=== PATIENT | female | born 1990 | race Caucasian/White ===

== ENCOUNTER 2022-07-10 08:30 | Outpatient (CLI) | payer BC, SELFPAY ==
[2022-07-10 13:14] LABS: Glucose* 94 mg/dL (60-115)
[2022-07-11 11:54] LABS: Estradiol Premenol Female 92 pg/mL
[2022-07-11 14:40] LABS: Prolactin 3.8 ng/mL (2.8-29.2)
[2022-07-11 16:12] LABS: Follicle Stimulating Hormone 5.1 IU/L; Luteinizing Hormone, Serum 8.3 IU/L
== END 2022-07-10 08:31 | disposition home or self-care (01) ==
PROVIDERS: Visit Provider Obstetrics & Gynecology
DX: N92.6 Irregular menstruation, unspecified (principal)
CPT/HCPCS: 82670; 82947; 83001; 83002; 84144; 84146; 84443

== ENCOUNTER 2022-11-13 10:59 | Outpatient (CLI) | payer SELFPAY ==
[2022-11-16 08:40] LABS: Progesterone, HPLC-MS/MS 0.12 ng/mL
== END 2022-11-13 11:00 | disposition home or self-care (01) ==
LOC: LONREF 11:00
PROVIDERS: PCP Obstetrics & Gynecology; Visit Provider Obstetrics & Gynecology
DX: N97.9 Female infertility, unspecified (principal)
CPT/HCPCS: 84144

== ENCOUNTER 2022-11-17 07:59 | Outpatient (CLI) | payer BC, SELFPAY ==
--- NOTE | 2022-11-17 08:15 | CRLHL7_ITS ---
For Patients: As a result of the Cures Act, medical imaging exams and procedure reports are released immediately into your electronic medical record. You may view this report before your referring provider. If you have questions, please contact your health care provider. INDICATION: Infertility workup. Prior section December 12, 2020. Prior appendectomy. TECHNIQUE: Fluoroscopically guided hysterosalpingogram performed in conjunction with Dr. Rowan. FINDINGS: 20 cc nonionic Omnipaque [address] Rowan. Normal-appearing uterus. Free spill of contrast from the fallopian tubes left initially more so than right. Please see detailed notes from Dr. Rowan. 42 seconds fluoroscopy time utilized. IMPRESSION: Normal hysterosalpingogram. Dictated by Lauri Martinez MD @ 11/17/2022 9:53:04 AM (Electronically Signed)
--- NOTE | 2022-11-17 09:53 | W.PM.GYNPROC ---
Procedure Note Date Seen: 11/17/22 Procedure Details: PREPROCEDURE DIAGNOSIS: Secondary infertility. POSTPROCEDURE DIAGNOSIS: 1. Secondary infertility. 2. Patent fallopian tubes bilaterally. NAME OF PROCEDURE: Hysterosalpingogram. SURGEON: Anum. ANESTHESIA: None. COMPLICATIONS: None. PROCEDURE: After obtaining verbal consent, the patient was placed in the dorsal lithotomy position on the x-ray table. An open-sided bivalve speculum was introduced into the vagina and the cervix easily visualized. The cervix and vagina were then prepped with Betadine. A balloon tippeddouble-lumen catheter was then gently inserted through the cervical openinginto the uterine cavity to the level of the fundus. The balloon wasinsufflated with 3 mL of air. The speculum was removed. The patient was repositioned in the supine position, covered, and the radiologist was called to the room. A hysterosalpingogram was then performed. A total of 7 cc of Optipaque water soluble contrast dye was injected through the double-lumen catheter under moderate pressure. There was immediate fill of the uterine cavity to the cornua immediate fill of the left fallopian tube with spillage into the left pelvis. There was immediate fill of the right fallopian tube which initially seemed to pool in the fimbrial end of the tube, and then with repositioning of the patient slightly tilted to her left, spillage was observed on the right as well. The balloon was deflated. The catheter was removed. The patient tolerated the procedure well, though she did have moderate cramping discomfort during and just after the procedure. She was discharged to home in stable condition and to [facility].
== END 2022-11-17 08:00 | disposition home or self-care (01) ==
LOC: RAD 08:00
PROVIDERS: PCP Obstetrics & Gynecology; Visit Provider Obstetrics & Gynecology
DX: N97.9 Female infertility, unspecified (principal)
CPT/HCPCS: 58340; 74740; A4649; Q9966; Q9967

== ENCOUNTER 2023-03-08 07:10 | Outpatient (CLI) | payer BC, SELFPAY ==
--- NOTE | 2023-03-08 07:15 | CRLHL7_ITS ---
For Patients: As a result of the Cures Act, medical imaging exams and procedure reports are released immediately into your electronic medical record. You may view this report before your referring provider. If you have questions, please contact your health care provider. INDICATION: First trimester scan, establish dates. COMPARISON: None. TECHNIQUE: Real-time early-scale imaging of the pelvis was performed. FINDINGS: Sonographic imaging demonstrates a single living intrauterine gestation. The embryo demonstrates a regular cardiac rate measuring 171 beats per minute. The embryo`s crown-rump length measurement of 1.9 cm corresponds to a gestational age of 8 weeks 3 days with a sonographic due date of October 15, 2023. There is a normal-appearing yolk sac measuring 3.4 mm. There are no gross abnormalities noted within the embryo at this early state of development. The placenta has not yet developed. The gestational sac has a normal appearance and there is no evidence of a perigestational hemorrhage. The amount of fluid within the sac appears appropriate for gestational age. The cervix is closed. The myometrium appears normal. The ovaries are of normal size. The right ovary measures 2.8 x 1.7 x 1.5 cm. The left ovary measures 3.1 x 2.0 x 1.9 cm. Corpus luteum cyst of on the left. There are no suspicious fluid collections noted in the cul-de-sac. IMPRESSION: Normal first trimester OB ultrasound exam. Gestational age calculated at 8 weeks 3 days with a sonographic due date of October 15, 2023. Dictated by Lauri Martinez MD @ 03/08/2023 8:39:27 AM (Electronically Signed)
== END 2023-03-08 07:11 | disposition home or self-care (01) ==
LOC: US 07:11
PROVIDERS: Visit Provider Physician Assistant
DX: Z34.91 Encounter for supervision of normal pregnancy, unspecified, first trimester (principal); Z3A.08 8 weeks gestation of pregnancy
CPT/HCPCS: 76817; 86592; 86703; 86762; 86787; 86803; 86850; 86900; 86901; 87086; 87340; 87491; 87591

== ENCOUNTER 2023-03-08 08:36 | Outpatient (CLI) | payer BC, SELFPAY ==
[2023-03-08 12:44] LABS: Chlamydia DNA Amplified* NOT DETECTED (No Detected); GC DNA Amplified* NOT DETECTED (No Detected)
== END 2023-03-08 08:37 | disposition home or self-care (01) ==
PROVIDERS: Visit Provider Physician Assistant
DX: Z34.91 Encounter for supervision of normal pregnancy, unspecified, first trimester (principal); Z3A.08 8 weeks gestation of pregnancy
CPT/HCPCS: 86592; 86703; 86762; 86787; 86803; 86850; 86900; 86901; 87086; 87340; 87491; 87591

== ENCOUNTER 2023-07-26 08:54 | Outpatient (CLI) | payer BC, SELFPAY | END 2023-07-26 08:55 | disposition home or self-care (01) | LOC: NFLDREF 07-28 10:59 | PROVIDERS: Visit Provider Obstetrics & Gynecology | DX: Z34.93 Encounter for supervision of normal pregnancy, unspecified, third trimester (principal); Z3A.28 28 weeks gestation of pregnancy | CPT/HCPCS: 86592 ==

== ENCOUNTER 2023-08-23 08:32 | Outpatient (CLI) | payer BC, SELFPAY ==
--- NOTE | 2023-08-23 08:45 | CRLHL7_ITS ---
For Patients: As a result of the Century Cures Act, medical imaging exams and procedure reports are released immediately into your electronic medical record. You may view this report before your referring provider. If you have questions, please contact your health care provider. INDICATION: recheck low-lying placenta COMPARISON: 03/08/2023 TECHNIQUE: Real-time early-scale imaging of the pelvis was performed. FINDINGS: Transvaginal measurement of the cervix is 5.6 cm. No funneling. Posterior placental edge is located 3.8 cm from the internal cervical os. Normal amniotic fluid with single deepest pocket 4.6 cm. heart rate 126 beats per minute. Vertex position. IMPRESSION: Closed cervix measuring 5.6 cm. Posterior placental edge located 3.8 cm from the internal cervical os. Dictated by Joseph Block MD @ 08/23/2023 10:11:25 AM (Electronically Signed)
== END 2023-08-23 08:33 | disposition home or self-care (01) ==
LOC: US 08:33
PROVIDERS: Visit Provider Obstetrics & Gynecology
DX: O44.40 Low lying placenta NOS or without hemorrhage, unspecified trimester (principal)
CPT/HCPCS: 76816; 76817

== ENCOUNTER 2023-09-21 15:30 | Outpatient (CLI) | payer OTHER, SELFPAY ==
[2023-09-22 17:35] LABS: Strep B DNA Probe Negative (Negative); Strep B Susceptibility Needed? No
== END 2023-09-21 15:31 | disposition home or self-care (01) ==
LOC: NFLDREF 15:41
PROVIDERS: Visit Provider Obstetrics & Gynecology
DX: Z34.93 Encounter for supervision of normal pregnancy, unspecified, third trimester (principal); Z3A.36 36 weeks gestation of pregnancy
CPT/HCPCS: 87081; 87653

== ENCOUNTER 2023-10-08 05:19 | Inpatient (IN) | payer OTHER, SELFPAY ==
[2023-10-08] VITALS (32 sets, daily range): BP systolic 93–139; BP diastolic 54–70; PULSE 54–84; RESP 15–17; TEMP 36.3–36.6; O2SAT 95–100; BMI 37.4
--- OUTSIDE RECORDS SUMMARY | 2023-10-08 05:22 | XMS_ITS | Clinical Summary ---
Author Name Unknown Organization [facility] Address [address] [place] [address] Care Team Providers Care Online Merchant Name Role Phone No Primary/Referring, Phy Primary Care Provider Unavailable Source Comments You are receiving this document as you are listed as the primary care provider,follow-up provider, or the patient has been referred to you for consultation.This is in compliance with the Medicare and[facility] EHR Incentive Program,which states Providers who transition their patient to another setting of careor provider of care or refers their patient to another provider of care shouldprovide summary care record for each transition of care or referral. [facility] Allergies Active Allergy Reactions Criticality Noted Date Comments Sulfa Antibiotics Hives High 06/29/2013 Sulfacetamide 01/21/2016 Medications Medication Sig Dispensed Refills Start Date End Date Status Vit-DSS-Fe Cbn-FA ( AD OR)Indications:Encou nter for preconception consultation 0 Active ibuprofen (MOTRIN) 800 MG tablet Take 1 Tablet by mouth three times a day. 15 Tablet 0 08/29/2019 Active Additional Information Patient not taking.Reported on 09/07/2019 ondansetron (ZOFRAN) 4 MG tablet Take 1 Tablet by mouth every 8 hours as needed for Nausea. 15 Tablet 0 08/29/2019 Active Additional Information Patient not taking.Reported on 09/07/2019 Active Problems Problem Noted Date Diagnosed Date Need for hepatitis B vaccination 08/02/2019 Resolved Problems Problem Noted Date Diagnosed Date Resolved Date Supervision of normal first 08/01/2019 09/07/2019 Encounter for removal of int rauterine contraceptive device 06/02/2017 12/09/2018 Immunizations Name Administration Dates Next Due DTP 03/16/1990 Hib (ActHIB) 03/16/1990 Influenza IIV4 (Quadrivalent) 0.5mL (27453) 07/21 MCV4 (Menactra) 10/08/2008 OPV, Trivalent (Orimune or tOPV) 03/16/1990 Positive Rubella Titer 08/01/2019 Tdap 05/01/2011 Family History Medical History Relation Name Comments Hypertension Maternal Grandfather Cancer Maternal Grandmother Hypertension Paternal Grandfather Stroke Paternal Grandfather Osteoporosis Paternal Grandmother Relation Name Status Comments Father Alive Mother Alive Brother Alive Maternal Grandfather Alive Maternal Grandmother Paternal Grandfather Alive Paternal Grandmother Alive Sister Alive Social History Tobacco Use Types Packs/Day Years Used Date Smoking Tobacco: Never Smokeless Tobacco: Never Alcohol Use Standard Drinks/Week Comments Not Currently 0 (1 standard drink = 0.6 oz pur e alcohol) PHQ-2 Answer Date Recorded PHQ-2 Score 0 03/28/2019 Sex and Gender Information Value Date Recorded Sex Assigned at Not on file Gender Identity Not on file Sexual Orientation Not on file Last Filed Vital Signs Vital Sign Reading Time Taken Comments Blood Pressure 102/65 09/07/2019 11:16 AM FIELD HANDYMAN Pulse 56 09/07/2019 11:16 AM FIELD HANDYMAN Temperature 37.3 ??C (99.2 ??F) 04/18/2018 11:06 AM C DT Respiratory Rate 16 12/09/2018 8:14 AM CDT Oxygen Saturation - - Inhaled Oxygen Concentration - - Weight 65.1 kg (143 lb 9.6 oz) 09/07/2019 11:16 AM FIELD HANDYMAN Height 157.5 cm (5' 2) 08/01/2019 1:54 PM FIELD HANDYMAN Body Mass Index 26.26 08/01/2019 1:54 PM FIELD HANDYMAN Plan of Treatment Health Maintenance Due Date Last Done Comments HepB (1) 1988 COVID-19 Vaccine (#1) 01/28/1989 IPV (Polio) (2 of 3 - 4-dose series) 04/13/1990 03/16/1990 Adult Preventive Visit 03/28/2021 9, 03/25/2018, 01/28/2017 DTaP/Tdap/Td (3 - Tdap) 05/01/2021 05/01/20, 03/16/1990 Influenza (#1) 2023 08/01/2019 Cervical Cancer Screening 03/28/20242018, 01/15/2016 Zoster/Shingles (1 of 2) 2038 Hib Completed 03/16/1990 MCV4 Aged Out 10/08/2008 No longer eligi ble based on patient's age to complete this topic HIV Screening (Preventive Services) Completed 03/28/2019 Hep C Screening (Preventive Services) Completed 03/28/2019 HPV Vaccine Aged Out No longer eligi ble based on patient's age to complete this topic HepA Aged Out No longer eligi ble based on patient's age to complete this topic Pneumococcal Aged Out No longer eligi ble based on patient's age to complete this topic Care Teams Online Merchant Relationship Specialty Start Date End Date No Primary/Referring, Eduar PCP - General 04/18/18
--- OUTSIDE RECORDS SUMMARY | 2023-10-08 05:22 | XMS_ITS | Encounter Summary ---
Author Name Unknown Organization [facility] Address [address] [place] [address] Care Team Providers Care Elevator Repairer Helper Name Role Phone Nia Toney APRN, CNP Primary Care Pro vider Reason for Referral * Diagnostic Imaging Ultrasound (Routine) - Pending Review Specialty Diagnoses / Procedures Referred By Contac t Referred To Contact Radiology. Diagnoses related condition, antepartum Procedures [address] [place] [address] Referral ID Status Reason Start Date Expiration Date V isits Requested Visits Authorized Pending Review 04/06/2023 04/05/2024 1 1 Reason for Visit * Diagnostic Imaging Ultrasound (Routine) - Pending Review Specialty Diagnoses / Procedures [facility] To [facility]. Diagnoses related condition, antepartum Procedures [place] [address] [place] [address] Referral ID Status Reason Start Date Expiration Date V isits Requested Visits Authorized Pending Review 04/06/2023 04/05/2024 1 1 Encounter Details Date Type Department Care Team (Latest Contact Info) Description 05/25/2023 7:58 AM CDT - 05/25/2023 11:59 PM CDT Hospital Encounter [facility] [place] [address] [facility] [address] [place] [address] [place], [address] [place] [address] Matthew Ghosh MD [address] [place], [place] [id number] [facility] [address] [place], [place] [id number] related condition, antepartum Discharge Disposition: Home or Self Care Social History Tobacco Use Types Packs/Day Years Used Date Smoking Tobacco: Never Smokeless Tobacco: Never Alcohol Use Standard Drinks/Week Comments No 0 (1 standard drink = 0.6 oz pur e alcohol) Estimated Date of Delivery Comme nts Yes 10/13/2023 Based on last me nstrual period of 01/06/2023 Sex and Gender Information Value Date Recorded Sex Assigned at Not on file Gender Identity Not on file Sexual Orientation Not on file COVID-19 Exposure Response Date Recorded In the last 10 days, have yo u been in contact with someone who was confirmed or suspected to have Coronavirus/COVID-19? No / Unsure 05/25/2023 7:58 AM CDT documented as of this encounter Medications at Time of Discharge Medication Sig Dispensed Refills Start Date End Date levonorgestrel (MIRENA) 20 MCG/24HR IUD 1 each by Intrauterine route once 0 documented as of this encounter Plan of Treatment Not on file documented as of this encounter Procedures Procedure Name Priority Date/Time Associated Diagnosis Comments [facility] S[facility] Routine 05/25/2023 8:48 AM CDT related condition, antepartum documented in this encounter Results * [facility] Single (05/25/2023 8:48 AM CDT) Anatomical Region Laterality Modality Ultrasound 05/25/2023 7:57 AM CDT Impressions 05/25/2023 8:52 AM CDT IMPRESSION ----- 1) Sonographic biometry agrees with gestational age predicted by LMP. 2) The anatomy was adequately visualized and appeared normal. 3) None of the anomalies commonly detected by ultrasound were evident. 4) No markers for aneuploidy seen. 5) Low-lying placenta. Narrative 05/25/2023 8:52 AM CDT Comprehensive ----- Pat. Name: RORO AGOSTO Study Date: 05/25/2023 7:57am Pat. NO: [id number] Referring ??MD: KIYA JUAREZ Site: [facility] Machine Operator: Silvia Hudson RDMS : 1990 Age: 32 ----- INDICATION ----- Advanced Maternal Age--Multigravida, low risk NIPT. METHOD ----- Transabdominal ultrasound examination. View: Sufficient ----- Wang . Number of fetuses: 1 DATING ----- ? Date ?Details ?Gest. age ?REMIGIO LMP ?01/06/2023 ? 19 w + 6 d ? 10/13/2023 Prior assessment ? 03/08/2023 ? GA: 8 w + 3 d ?19 w + 4 d ? 10/15/2023 U/S ? 05/25/2023 ?based upon AC, BPD, Femur, HC ? 19 w + 3 d ? 10/16/2023 Assigned dating ?Dating performed on 05/25/2023, based on the LMP ?19 w + 6 d ? 10/13/2023 GENERAL EVALUATION ----- Cardiac activity present. FHR 144 bpm. movements present. Presentation breech. Placenta Posterior, low lying. Leading edge of placenta is 1.3cm from internal os. Umbilical cord 3 vessel cord. Amniotic fluid Amount of AF: normal. MVP 5.0 cm. BIOMETRY ----- Main Biometry: BPD ?43.5 ?mm ? 19w 1d ?Hadlock OFD ?61.7 ?mm ? 19w 6d ?Nicolaides HC ?169.7 ?mm ?19w 4d ?Hadlock Cerebellum tr ?20.1 ? mm ?19w 1d ?Nicolaides AC ?138.6 ?mm ?19w 2d ?26% ?Hadlock Femur ?31.8 ? mm ?19w 6d ?Hadlock Humerus ?30.5 ?mm ? 20w 0d ?Kei Weight Calculation: EFW ? 299 ? g ? 29% ?Hadlock EFW (lb,oz) ? 0 lb 11 ? oz EFW by ?Hadlock ([id number]) Head / Face / Neck Biometry: Shoe Stainer ? 6.2 ? mm CM ?4.3 ? mm Nasal bone ? 5.6 ? mm Nuchal fold ? 3.5 ? mm ANATOMY ----- The following structures appear normal: Head / Neck ? Cranium. Head size. Head shape. Lateral ventricles. Choroid plexus. Midline falx. Cavum septi pellucidi. Cerebellum. Cisterna magna. ? Parenchyma. Thalami. Vermis. ? Neck. Nuchal fold. Face ? Lips. Profile. Nose. Maxilla. Mandible. Orbits. Lens. Heart / Thorax ?4-chamber view. RVOT view. LVOT view. Situs. Aortic arch view. Bicaval view. Ductal arch view. Superior vena cava. Inferior vena cava. 3-vessel ? view. 5-pdsjsb-femlvkk view. Cardiac position. Cardiac size. Cardiac rhythm. ? Right lung. Left lung. Diaphragm. Abdomen ? Abdominal wall. Cord insertion. Stomach. Kidneys. Bladder. Liver. Bowel. Genitals. Spine ?Cervical spine. Thoracic spine. Lumbar spine. Sacral spine. Extremities / Skeleton ?Right arm. Right hand. Left arm. Left hand. Right leg. Right foot. Left leg. Left foot. Gender: male. MATERNAL STRUCTURES ----- Cervix ?Visualized ? Appearance: Appears Closed ? Approach - Transabdominal: Cervical length 51.6 mm Right Ovary ?Visualized Left Ovary ?Visualized RECOMMENDATION ----- We discussed the findings on today's ultrasound with the patient. Further ultrasound studies as clinically indicated. Return to primary provider for continued care. Thank-you for the opportunity to participate in the care of this patient. If you have questions regarding today's evaluation or if we can be of further service, please contact the [facility]. anomalies may be present but not detected Procedure Note Matthew Ghosh MD - 05/25/2023 Comprehensive ----- Pat. Name:Joanna AGOSTO Date:05/25/2023 7:57am Pat. NO: [id number] MD:KIYA JUAREZ Site:[place]ographer:Silvia Hudson RDMS :1990Age:32 ----- INDICATION ----- Advanced Maternal Age--Multigravida, low risk NIPT. METHOD ----- Transabdominal ultrasound examination. View: Sufficient ----- Wang . Number of fetuses: 1 DATING ----- DateDetailsGest. age REMIGIO LMP w + 6 d 10/13/2023 Prior assessment 03/08/2023 GA: 8 w +3 d19 w + 4 d 10/15/2023 U/S 05/25/2023ased upon AC, BPD, Femur, HC19 w + 3 d 10/16/2023 Assigned dating Dating performed on 05/25/2023, based onthe LMP 19 w+ 6 d 10/13/2023 GENERAL EVALUATION ----- Cardiac activity present. FHR 144 bpm. movements present. Presentation breech. Placenta Posterior, low lying. Leading edge of placenta is 1.3cm from internalos. Umbilical cord 3 vessel cord. Amniotic fluid Amount of AF: normal. MVP 5.0 cm. BIOMETRY ----- Main Biometry: BPD 43.5 mm19w 1d Hadlock OFD 61.7 mm19w 6d Nicolaides HC 169.7 mm19w 4d Hadlock Cerebellum tr 20.1 mm19w 1d Nicolaides AC 138.6 mm19w 2d 26% Hadlock Femur 31.8 mm19w 6d Hadlock Humerus 30.5 mm20w 0d Kei Weight Calculation: EFW 299 g29% Hadlock EFW (lb,oz) 0 lb 11 oz EFW by Hadlock ([id number]) Head / Face / Neck Biometry: Shoe Stainer 6.2 mm CM 4.3 mm Nasal bone 5.6 mm Nuchal fold 3.5 mm ANATOMY ----- The following structures appear normal: Head / Neck Cranium. Head size. Head shape.Lateral ventricles. Choroid plexus. Midline falx. Cavum septi pellucidi.Cerebellum. Cisterna magna. Parenchyma. Thalami. Vermis. Neck. Nuchal fold. Face Lips. Profile. Nose. Maxilla.Mandible. Orbits. Lens. Heart / Thorax 4-chamber view. RVOT view. LVOT view.Situs. Aortic arch view. Bicaval view. Ductal arch view. Superior venacava. Inferior vena cava. 3-vessel view. 3-pxacul-fjtjrti view.Cardiac position. Cardiac size. Cardiac rhythm. Right lung. Left lung.Diaphragm. Abdomen Abdominal wall. Cord insertion.Stomach. Kidneys. Bladder. Liver. Bowel. Genitals. Spine Cervical spine. Thoracic spine.Lumbar spine. Sacral spine. Extremities / Skeleton Right arm. Right hand. Left arm. Lefthand. Right leg. Right foot. Left leg. Left foot. Gender: male. MATERNAL STRUCTURES ----- Cervix Visualized Appearance: Appears Closed Approach - Transabdominal:Cervical length 51.6 mm Right Ovary Visualized Left Ovary Visualized RECOMMENDATION ----- We discussed the findings on today's ultrasound with the patient. Further ultrasound studies as clinically indicated. [facility] to [facility] for continued care. Thank-you for the opportunity to participate in the care of this patient.If you have questions regarding today's evaluation or if we can be offurther service, please contact the [facility]. anomalies may be present but not detected IMPRESSION ----- 1) Sonographic biometry agrees with gestational age predicted by LMP. 2) The anatomy was adequately visualized and appeared normal. 3) None of the anomalies commonly detected by ultrasound were evident. 4) No markers for aneuploidy seen. 5) Low-lying placenta. December Nathan IM MF US ORDERABLE S documented in this encounter Visit Diagnoses Diagnosis related condition, antepartum documented in this encounter Care Teams Elevator Repairer Helper Relationship Specialty Start Date End Date Nia Toney, CLAY STUNT DRIVER [address] [place], [place] [address] PCP - General Family Practice 01/22/15 documented as of this encounter
--- OUTSIDE RECORDS SUMMARY | 2023-10-08 05:22 | XMS_ITS | Clinical Summary ---
Author Name Unknown Organization [facility] Address [address] [place] [address] Care Team Providers Care Car Bracer Name Role Phone Nia Toney APRN COMMUNICATIONS MEDIA PROFESSOR Primary Care Pro vider Allergies Active Allergy Reactions Criticality Noted Date Comments Sulfa Antibiotics 03/24/2007 Medications Medication Sig Dispensed Refills Start Date End Date Status levonorgestrel (MIRENA) 20 MCG/24HR IUD 1 each by Intrauterine route once 0 Active Active Problems Problem Noted Date Diagnosed Date IUD (intrauterine device) in place 01/22/2015 Overview: mirena placed 04/2012 CARDIOVASCULAR SCREENING; LDL GOAL LESS THAN 160 07/20/2010 Seasonal allergies Estimated Date of Delivery Comme nts Yes 10/13/2023 Based on last me nstrual period of 01/06/2023 Immunizations Name Administration Dates Next Due Meningococcal ACWY (Menactra??) 10/08/2008 TDAP Vaccine (Adacel) 05/01/2011 Family History Medical History Relation Comments Heart Disease Maternal Grandfather heart anury sm Hypertension Maternal Grandfather Cancer Maternal Grandmother bone marrow Osteoporosis Maternal Grandmother Cancer Other paternal great-g randfather: bone marrow Osteoporosis Paternal Aunt Cancer Paternal Grandfather prostate Cerebrovascular Disease Paternal Grandfather Hypertension Paternal Grandfather Relation Status Comments Brother Alive Father Alive Maternal Grandfather Maternal Grandmother Mother Alive Other Paternal Aunt Paternal Grandfather Sister Alive Social History Tobacco Use Types Packs/Day Years Used Date Smoking Tobacco: Never Smokeless Tobacco: Never Tobacco Cessation:Counseling Given: Yes Alcohol Use Standard Drinks/Week Comments No 0 (1 standard drink = 0.6 oz pur e alcohol) Adolescent Education Answer Date Record ed Getting School Help Needed Not on file 07/04 Estimated Date of Delivery Comme nts Yes 10/13/2023 Based on last me nstrual period of 01/06/2023 Sex and Gender Information Value Date Recorded Sex Assigned at Not on file Gender Identity Not on file Sexual Orientation Not on file Last Filed Vital Signs Vital Sign Reading Time Taken Comments Blood Pressure 105/66 01/22/2015 10:21 AM CDT Pulse 60 01/22/2015 10:21 AM CDT Temperature 36.5 ??C (97.7 ??F) 01/22/2015 10:21 AM C DT Respiratory Rate 16 01/22/2015 10:21 AM CDT Oxygen Saturation 97% 01/26/2014 7:44 PM CDT Inhaled Oxygen Concentration - - Weight 55.9 kg (123 lb 3.2 oz) 01/22/2015 10:21 AM CDT Height 158.8 cm (5' 2.5) 01/22/2015 10:21 AM CD T Body Mass Index 22.17 01/22/2015 10:21 AM CDT Plan of Treatment Health Maintenance Due Date Last Done Comments ANNUAL REVIEW OF HM ORDERS 1990 HEPATITIS B IMMUNIZATION (1 of 3 - 3-dose series) 1990 COVID-19 Vaccine (#1) 01/28/1989 IPV IMMUNIZATION (2 of 3 - 4-dose series) 04/13/1990 03/16/1990 HIV SCREENING 2003 HEPATITIS C SCREENING 2006 PAP 01/22/2018 01/22/2015, 04/20, 05/01/2011, Additional history exists YEARLY PREVENTIVE VISIT 03/28/2020 03/28/20 19, 03/25/2018, 01/28/2017, Additional history exists MATERNAL SCREENING DISCUSSION 03/17/2023 INFLUENZA VACCINE (#1) 2023 08/21/2020, 2018 OBGCT (OB) 06/23/2023 GROUP B STREP SCREENING 09/15/2023 PHQ-2 (once per calendar year) 2023 ADVANCE CARE PLANNING 05/27/2028 05/27/2023 DTAP/TDAP/TD IMMUNIZATION (4 - Td or Tdap) 10/02/2030 10/02/2020, 05/01/2011, 03/16/1990 MENINGITIS IMMUNIZATION Aged Out 10/08/2008 No l onger eligible based on patient's age to complete this topic HPV IMMUNIZATION Aged Out No longer e ligible based on patient's age to complete this topic Pneumococcal Vaccine: Pediatrics (0 to 5 Years) and At-Risk Patients (6 to 64 Years) Aged Out No longer eligible based on patient's age to complete this topic RSV MONOCLONAL ANTIBODY Aged Out No l onger eligible based on patient's age to complete this topic RSV VACCINE ( & 60+) (No Doses Required) Completed Care Teams Car Bracer Relationship Specialty Start Date End Date Nia Toney, [employer]IV[employer]AN COMMUNICATIONS MEDIA PROFESSOR [address] [facility] [facility] [place] [address] PCP - General Family Practice 01/22/15
--- OUTSIDE RECORDS SUMMARY | 2023-10-08 05:22 | XMS_ITS | Encounter Summary ---
Author Name Unknown Organization [facility] Address [address] [place] [address] Care Team Providers Care Ux Developer Name Role Phone Nia Toney APRN POT FLUXER Primary Care Pro vider Encounter Details Date Type Department Care Team (Latest Contact Info) Description 05/25/2023 Travel Social History Tobacco Use Types Packs/Day Years [...] AM CDT documented as of this encounter Plan of Treatment Not on file documented as of this encounter Visit Diagnoses Not on filedocumented in this encounter Care Teams Ux Developer Relationship Specialty Start Date End Date Nia Toney APRN CNP [facility] [facility] [place] [address] PCP - General Family Practice 01/22/15 documented as of this encounter
--- OUTSIDE RECORDS SUMMARY | 2023-10-08 05:22 | XMS_ITS | Encounter Summary ---
Author Name Unknown Organization [place] Address [address] [facility] [place] [address] Care Team Providers Care Equipment Validation Specialist Name Role Phone Tobias-Nia Orozco APRN, CNP Primary Care Pro vider Reason for Visit * Reason Comments Ultrasound L2-AMA Encounter Details Date Type Department Care Team (Late st Contact Info) Description 05/25/2023 8:30 AM CDT Office Visit [facility] [place] [address] [facility] [address] [place] [address] [facility] [address] [facility] [place], [place] [id number] Matthew Ghosh MD [address] [place] [id number] Multigravida of advanced maternal age in second trimester (Primary Dx) Social History Tobacco Use Types Packs/Day Years [...] AM CDT documented as of this encounter Progress Notes * Matthew Ghosh MD - 05/25/2023 8:30 AM CDT Please see Imaging tab under Chart Review for details of today's US at the [facility]. Matthew Ghosh MD Maternal- Medicine documented in this encounter Plan of Treatment Not on file documented as of this encounter Visit Diagnoses Diagnosis Multigravida of advanced maternal age in second trimester- Primary documented in this encounter Care Teams Equipment Validation Specialist Relationship Specialty Start Date End Date Nia Toney, COTTON FEEDER VERTICAL MILL OPERATOR [facility]5 [facility] [place] [address] PCP - General Family Practice 01/22/15 documented as of this encounter
--- OUTSIDE RECORDS SUMMARY | 2023-10-08 05:22 | XMS_ITS | Encounter Summary ---
Author Name Unknown Organization [place] Address [address] [place] [address] Care Team Providers Care Jr. Systems Administrator Name Role Phone Nia Toney APRN PONY EDGER Primary Care Pro vider Reason for Visit * Reason Comments Advance Care Planning Encounter Details Date Type Department Care Team (Latest Contact Info) Description 05/27/2023 Documentation Only [facility] [address] [facility] [address] [place] [phone] Amelie Cam [facility] [address] [place] [address] Advance Care Planning Social History Tobacco Use Types Packs/Day Years [...] on filedocumented in this encounter Care Teams Jr. Systems Administrator Relationship Specialty Start Date End Date Nia Toney APRN PONY EDGER [facility]5 [facility] [place] [address] PCP - General Family Practice 01/22/15 documented as of this encounter
--- OUTSIDE RECORDS SUMMARY | 2023-10-08 05:22 | XMS_ITS | Referral Summary ---
Author Name Unknown Organization [place] Address [address] [place] [address] Care Team Providers Care Director Of Primary Name Role Phone Nia Toney APRN SHOP ESTIMATOR Primary Care Pro vider Allergies Active Allergy [...] ACWY (Menactra??) 10/08/2008 TDAP Vaccine (Adacel) 05/01/2011 Social History Tobacco Use Types Packs/Day Years [...] 01/22/2015 10:21 AM CDT Plan of Treatment Not on file Care Teams Director Of Primary Relationship Specialty Start Date End Date Nia Toney, FEEDER CATCHER TOBACCO SHOP ESTIMATOR [address] [facility] [place] [address] PCP - General Family Practice 01/22/15
--- OUTSIDE RECORDS SUMMARY | 2023-10-08 05:23 | XMS_ITS | Encounter Summary ---
Author Name Unknown Organization [place] Address [address] [place] [address]. [place] [address] Care Team Providers Care Tow Car Driver Name Role Phone Nia Toney APRN RESIDENT CARE TECHNICIAN Primary Care Pro vider Encounter Details Date Type Department Care Team ([facility] Contact Info) Description 04/06/2023 Medical Correspondence [facility] [address] [place] [address] Outside, Provider Social History Tobacco Use Types Packs/Day Years Used Date Smoking Tobacco: Never Smokeless Tobacco: Never Alcohol Use Standard Drinks/Week Comments No 0 (1 standard drink = 0.6 oz pur e alcohol) Sex and Gender Information Value Date Recorded Sex Assigned at Not on file Gender Identity Not on file Sexual Orientation Not on file documented as of this encounter Plan of Treatment Not on file documented as of this encounter Visit Diagnoses Not on filedocumented in this encounter Care Teams Tow Car Driver Relationship Specialty Start Date End Date Nia Toney APRN CNP [facility]5 [facility] [place] [address] PCP - General Family Practice 01/22/15 documented as of this encounter
--- OUTSIDE RECORDS SUMMARY | 2023-10-08 05:23 | XMS_ITS | Encounter Summary ---
Author Name Unknown Organization [place] Address [address] [place] [address]. [place] [address] Care Team Providers Care Truss Maker Name Role Phone Eduard Stoll MD Primary Care Provider [phone] [facility] Primary Care Provider Nia Toney APRN [facility] Primary Care Pro vider Encounter Details Date Type Department Care Team (Late st Contact Info) Description 02/18/2012 Office Visit-P INTERFACE P DEPT Magdiel Garcia MD [address] [place] [address] Social History Tobacco Use Types Packs/Day Years Used Date Smoking Tobacco: Never Alcohol Use Standard Drinks/Week Comments No 0 (1 standard drink = 0.6 oz pur e alcohol) Sex and Gender Information Value Date Recorded Sex Assigned at Not on file Gender Identity Not on file Sexual Orientation Not on file documented as of this encounter Progress Notes * Magdiel Garcia D - 02/18/2012 8:40 AM CDT Internet Sales Manager: Magdiel Garcia Status: Final Encounter: 2012-02-18 08:40:00.000 Type: FM Visit Reason For Visit Patient presents for HFU appendectomy. Records on [facility] rasmussen Last Pap smear by patient report 04/30 normal Allergy List reviewed: Current Immunizations reviewed: Up to date Medication list reviewed with patient and was up to date. pt taking Novaring PHQ2 was given and was negative. Allergies Sulfa Drugs; Allergy. Smoking Assessment No secondhand cigarette smoke exposure. No tobacco use. Vital Signs Recorded by [facility] on 18 Feb 2012 08:55 AM BP:104/73, RUE, Sitting, HR: 93 b/min, R Radial, Resp: 14 r/min, Normal, Temp: 98.1 F, Oral, Height: 62 in, Weight: 117 lb, BMI: 21.4 kg/m2, O2 Sat: 100 (%SpO2). Active Problems Care Coordinated By; Tier 0 02/17/12. PMH History of appendicitis which is resolved (541). SOAP SUBJECTIVE: Bessie Cabrera is a 21-year-old female who is otherwise healthy with only a past medical history of constipation who presented to [facility] on 02/09 with abdominal pain. She was subsequently found to have appendicitis and underwent an open appendectomy on 02/09 due to ruptured appendicitis. She had an otherwise uneventful hospital course and was discharged home to complete a 10 day course of Augmentin. She states she has been taking her Augmentin as prescribed. She did fill herVicodin prescription but has not taken it as it makes her quite nauseous. She is controlling her pain with Tylenol as needed right now. She is tolerating nearly a full diet. She has mild pain around the incision that is significantly improved. She is having daily bowel movements that have been fairly loose but are becoming more solid. She denies any blood or any severe abdominal pain. She furtherdenies any fever or chills, nausea or vomiting or other complaints. OBJECTIVE: VITAL SIGNS: Afebrile, otherwise normal. GENERAL: Patient is awake, alert, no acute distress. HEART: Regular rate and rhythm, no murmurs, rubs or gallops. CHEST: Lungs clear to auscultation bilaterally. ABDOMEN: Soft, very mildly appropriately tender around the incision, otherwise non-tender. Normal active bowel sounds. No rebound or guarding. Incision is clean, dry and intact. EXTREMITIES: Warm and well perfused, no edema. ASSESSMENT AND PLAN: This is a 21-year-old female here for postoperative follow- up of open appendectomy due to ruptured appendix who is doing well. I discussed with her slowly increasing her diet as tolerated as well as avoiding heavy exertion for the next few weeks. She should follow-up with [facility] in 1 week. She is moving to [place] and likely will establish primary care there but I explained to her that she is welcome to return to the clinic as needed for further medical follow-up. She expressed understanding of this plan and will call if she has questions. Dictated by Magdiel Garcia MD, Resident; ; ; ; ts. Assessment Visit for: postsurgical exam (V67.00) Plan Patient participated in and agrees with todays plan. Attending Note Patient reviewed and discussed with resident. Agree with Plan of Care. Supervising Physician: Dr. Solis. Signature Signed By: Magdiel Garcia M.D.,Resident; 02/18/2012 1:30 PM WALLPAPER INSTALLER. Signed By: Davida Solis M.D.; 02/25/2012 8:34 AM WALLPAPER INSTALLER. documented in this encounter Plan of Treatment Not on file documented as of this encounter Visit Diagnoses Not on filedocumented in this encounter Care Teams Truss Maker Relationship Specialty Start Date End Date Eduard Stoll MD PCP - General Family Practice 03/10/13 06/06/[address] [address] PCP - General Internal Medicine 06/07/13 01/21/15 Nia Toney APRN STREETCAR DISPATCHER [address] [place] [address] [place] [address] PCP - General Family Practice 01/22/15 documented as of this encounter
--- OUTSIDE RECORDS SUMMARY | 2023-10-08 05:23 | XMS_ITS | Encounter Summary ---
Author Name Unknown Organization [place] Address [address] [place] [address] Care Team Providers Care Motor Home Electrical Foreman Name Role Phone Nia Toney APRN DAY HABILITATION SUPERVISOR Primary Care Pro vider Reason for Referral * Diagnostic Imaging Ultrasound (Routine) - Pending Review Specialty Diagnoses / Procedures Referred By Contac t Referred To Contact Radiology. Diagnoses related condition, antepartum Procedures [facility] US [facility] [place] [address] [place] [address] Referral ID Status Reason Start Date Expiration Date V isits Requested Visits Authorized [id number] Pending Review 04/06/2023 04/05/2024 1 1 * Consultation (Routine: Next available opening) - Pending Review Specialty Diagnoses / Procedures [facility] Referred To Contact Diagnoses related condition, antepartum [facility] [place] [address] [place] [address] [facility]aternal [facility] [address] [place] [address] Referral ID Status Reason Start Date Expiration Date V isits Requested Visits Authorized [id number] Pending Review 04/06/2023 04/05/2024 1 1 Question Answer Preferred Location: [facility] [place] REMIGIO 10/13/2023 Ultrasound Comprehensive US (>than 18 weeks GA) US PROC NONE [facility] Issue Genetic Screening *MUST request Genetic Counseling - GARCIA TOURE MD Consultation (unrelated to Ultrasound findings): No Inflammatory Bowel Disease Clinic: Joint MFM and GI Consultation: No Chronic Kidney Disease: Joint CHECOM and Nephrology Consultation No Genetic Counseling Consultation: No fax [facility], Savannah Sapp- [phone] Comments There is no height or weight on file to calculate BMI. >> Patient may proceed with recommendations for further testing as directed by the Maternal Medicine Specialist >> >> If requesting Echo: MFM will determine appropriate location for exam due to indication. >> If requesting Lung Maturity Amnio: If results indicate lung maturity, induction or C/S is recommended within 36 hours. Please schedule accordingly. Please be aware that coverage of these services is subject to the terms and limitations of your health insurance plan. Call member services at your health plan with any benefit or coverage questions. Encounter Details Date Type Department Care Team (Latest Contact Info) Description 04/06/2023 Transcribe Orders [facility] [place] [address] [facility] [address] [place] [phone] Nathanmojgan Kiya [facility] [address] [facility] [place], [place] [id number] related condition, antepartum (Primary Dx) Social History Tobacco Use Types [...] as of this encounter Plan of Treatment Scheduled Referrals Name Type Priority Associated Diagnoses Orde r Schedule Mat Med Ctr Referral - Referral Routine: Next available opening related condition, antepartum Expected: 05/12/2023 (Approximate), Expires: 10/03/2023 documented as of this encounter Results * M Comprehensive Single (05/25/2023 8:48 AM CDT) Anatomical Region [...] AGOSTO Study Date: 05/25/2023 7:57am Pat. NO: [id number] Referring ??MD: KIYA JUAREZ Site: [facility] Team Lead: Silvia Hudson RDMS : 1990 Age: 32 [...] lb 11 ? oz EFW by ?Hadlock ([id number]) Head / Face / Neck Biometry: Mortgage Or Loan Underwriter ? 6.2 ? mm CM ?4.3 ? [...] cava. Inferior vena cava. 3-vessel ? view. 2-dnaayl-mkxcwjj view. Cardiac position. Cardiac size. Cardiac rhythm. [...] Pat. Name:Joanna AGOSTO Date:05/25/2023 7:57am Pat. NO: [id number] MD:KIYA JUAREZ [facility]Silvia Hudson [facility] :1990Age:32 ----- INDICATION ----- Advanced Maternal Age--Multigravida, [...] 0 lb 11 oz EFW by Hadlock ([id number]) Head / Face / Neck Biometry: Mortgage Or Loan Underwriter 6.2 mm CM 4.3 mm Nasal bone [...] Superior venacava. Inferior vena cava. 3-vessel view. 9-mfhwfu-xcrpeha view.Cardiac position. Cardiac size. Cardiac rhythm. Right [...] ultrasound studies as clinically indicated. Return to [facility] for continued care. Thank-you for the opportunity [...] for aneuploidy seen. 5) Low-lying placenta. December Mike [facility] US ORDERABLE S documented in this encounter Visit Diagnoses Diagnosis related condition, antepartum- Primary related condition, antepartum documented in this encounter Care Teams Motor Home Electrical Foreman Relationship Specialty Start Date End Date iNa Toney, PROPERTY MANAGEMENT BOOKKEEPER [facility] [place] [address] PCP - General Family Practice 01/22/15 documented as of this encounter
--- OUTSIDE RECORDS SUMMARY | 2023-10-08 05:23 | XMS_ITS | Encounter Summary ---
Author Name Unknown Organization [place] Address [address] [place] [address] Care Team Providers Care Environmental Construction Engineer Name Role Phone Nia Toney APRN FERMENTER HELPER Primary Care Pro vider Reason for Visit * Reason Onset Date Comments Outreach 07/08/2017 REATT ATT 1 Encounter Details Date Type Department Care Team ([facility] st Contact Info) Description 07/08/[address] [address] Nia Toney, FORESTRY SUPPORT SPECIALIST FERMENTER HELPER [address] [place] [address] DR MATIAS [place] [phone] Outreach (REATT ATT 1) Social History Tobacco Use Types Packs/Day Years Used Date Smoking Tobacco: Never Smokeless Tobacco: Never Alcohol Use Standard Drinks/Week Comments No 0 (1 standard drink = 0.6 oz pur e alcohol) Sex and Gender Information Value Date Recorded Sex Assigned at Not on file Gender Identity Not on file Sexual Orientation Not on file documented as of this encounter Miscellaneous Notes * Telephone Encounter - Cesia Monique - 07/08/2017 12:10 PM CDT 07/08/2017 Call Regarding Reattribution Physical Attempt 1 Message on voicemail Comments: Outreach Editorial Clerk MG documented in this encounter Plan of Treatment Not on file documented as of this encounter Visit Diagnoses Not on filedocumented in this encounter Care Teams Environmental Construction Engineer Relationship Specialty Start Date End Date Nia Toney APRN FERMENTER HELPER [address] [place] [address] DR MATIAS, [place] [address] PCP - General Family Practice 01/22/15 documented as of this encounter
--- OUTSIDE RECORDS SUMMARY | 2023-10-08 05:23 | XMS_ITS | Encounter Summary ---
Author Name Unknown Organization [place] Address [address] [place] [address] Care Team Providers Care End Finder Forming Department Name Role Phone Nia Toney APRN LIME FILTER OPERATOR Primary Care Pro vider Reason for Visit * Reason Comments Ultrasound L2-AMA Encounter Details Date Type Department Care Team (Late st Contact Info) Description 05/17/2023 PRE VISIT [facility] [place] [address] [facility] [address] [place] [address] Nalini Lin, DARIN Ultrasound (L2-AMA) Social History Tobacco Use Types Packs/Day Years [...] on filedocumented in this encounter Care Teams End Finder Forming Department Relationship Specialty Start Date End Date Nia Toney APRN LIME FILTER OPERATOR [address] [facility] [place] [address] PCP - General Family Practice 01/22/15 documented as of this encounter
[2023-10-08 06:02] LABS: Basophils Absolute Auto 0.03 K/uL (0.00-0.30); Basophils Percent Auto 0.3 % (0.0-3.0); Eosinophils Absolute Auto 0.08 K/uL (0.00-0.50); Eosinophils Percent Auto 0.9 % (0.0-7.0); Hematocrit 39.7 % (33.0-51.0); Hemoglobin* 13.6 gm/dL (12.0-16.0); Immature Granulocytes Abs Auto 0.05 K/uL (0.00-0.30); Immature Granulocytes Pct Auto 0.6 %; Lymphocytes Percent Auto 19.9 % (20-44); Mean Corpuscular HGB Conc 34 gm/dL (32-36); Mean Corpuscular Hemoglobin 31 pg (26-34); Mean Corpuscular Volume 91 fL (80-100); Monocytes Percent Auto 7.5 % (0.0-11.0); Neutrophils Percent Auto 70.8 % (42.0-72.0); Platelet Count* 128 K/uL (140-440); RDW Coefficient of Variation % 14.2 % (11.5-15.5); Red Blood Count 4.38 m/uL (4.00-5.20); White Blood Count* 8.63 K/uL (4.50-11.00)
[2023-10-08 06:03] LABS: Slide Review Reflex No
[2023-10-08] MEDS: LACTATED RINGERS 1000 ML 1,000 ML IV ×2 (06:13→10:34)
--- NOTE | 2023-10-08 07:13 | P.LDBA_ITS ---
Subjective History of Present Illness Time Seen by Provider: 07:10 Date Seen: 10/08/23 Narrative: Patient is being admitted to Labor and Delivery for repeat section. She is a 33 year old at 39 2/7 weeks gestation. Her full history and physical was dictated by Dr. Rowan on 09/27/2023. Please see this for details. She feels well. She has no concerns. Informed consent for the procedure had already been obtained was reviewed today. Specific Issues/Plans 1. AMA * Cell free DNA: Negative * Level 2 ultrasound: referral placed 04/05/23. Scheduled at [place] on 05/25/2023: Posterior placenta, low lying, 1.3 cm from internal os. Normal anatomy. EFW 29% * Follow-up ultrasound for placental location 28-32 weeks: 08/23/23. Placental edge located 3.8 cm from the internal cervical os. * 2. Obesity, BMI 30.4 * Hemoglobin A1c: 4.9% 3. History of . Postdates induction, secondary arrest of descent, recurrent late deceleration. * Desires repeat with the tubal ligation. Consent obtained 09/27/23. 4. Pap TDAP: 08/09/23 RSV: declines COVID: declines FLU: 06/29/23 OB - Problem Based A/P Delivery/Labor/Induction Plan Plan: Section OB Result Labs Blood Type: O (+) positive Rubella: immune RPR/VDLR: nonreactive GBS Status: negative HBsAG: negative OB Exam Physical Exam Vital signs: Pulse BP 84 109/66 10/08/23 05:34 10/08/23 05:34 Narrative: VITAL SIGNS: Noted above. GENERAL APPEARANCE: Alert cooperative white female in no acute distress. MOOD AND AFFECT: Normal. CV: Heart regular rate and rhythm. PULM: Lungs clear to auscultation bilaterally. ABDOMEN: Soft, gravid, nontender. Fundal height is consistent dates. The fetus is in a vertex presentation by Colten's. EXTREMITIES: Without significant edema, nontender bilaterally. NEURO: Intact. Detailed Labor and Delivery Exam Patient Gravid: Yes Fetus (Single) Heart Rate Baseline: 130 Monitor Accelerations: Present Monitor Decelerations: None Manager Desktop Variability: Moderate (6-25)
--- NOTE | 2023-10-08 07:16 | PM.OBPRCCS ---
OB Delivery Proc Additional Procedures Tubal Ligation at the time of : Yes Procedure Date of procedure: 10/08/23 Pre-op diagnosis: 39 2/7 weeks gestation, History of prior section x1 Post-op diagnosis: same Procedure Done: Global Will [facility] bill your pro fee for this procedure?: Yes Blood Loss Measurement Type: QBL (770 mL) Bakri Used: No Surgeon: Ivone Rowan Anesthesia Type: Spinal Findings: Dense adhesions between fascia, underlying peritoneum, omentum, and rectus muscles. Otherwise normal-appearing uterus, tubes, and ovaries. Live-born male , backup transverse presentation with head in the maternal right upper quadrant, Apgars 1, 8, and 9 at one, five, and 10 minutes respectively, weight 6 lb 11 oz. Procedure Name: Repeat low transverse section, lysis of adhesions, bilateral salpingectomies. Procedure Description: After obtaining informed consent, the patient was taken to the operating room where spinal anesthesia was obtained and found to be adequate. She was prepared and draped in the normal sterile fashion in the dorsal supine position with a leftward tilt. A Pfannenstiel skin incision was made with a scalpel along the line of the patient's previous Pfannenstiel scar. This incision was carried down to the underlying layer of fascia with the Bovie. The fascia was incised in the midline and the incision extended laterally. The superior and inferior aspects of the fascial incision were grasped with Jeff clamps, elevated and the underlying rectus muscles dissected off sharply and with electrocautery. This dissection took an increased amount of time given the dense adhesions. The rectus muscles were then in the midline. There were omental adhesions noted superiorly, which were doubly clamped, transected, and suture ligated with 0 chromic. The adhesions between the bladder and lower uterine segment were taken down sharply with Metzenbaum scissors and a bladder flap developed. The Esau O retractor was then placed into the incision. The lower uterine segment was then incised in a transverse fashion with the scalpel. Upon entry into the uterus, clear amniotic fluid was noted. The uterine incision was extended laterally with blunt finger fractionation. As I reached in to deliver the feet, the left arm came out of the hysterotomy incision. I repositioned the arm and shoulder back into the uterus, and attempted to grasp both feet. I was successful in grasping the left foot and leg. The left arm again presented at the incision. I was able to rotate the fetus into a back up position, and deliver the pelvis. At this point, I was able to flex the right knee in deliver the right leg. Then the torso, both arms, and head were delivered. The nose and mouth were suctioned with the bulb suction. The cord was doubly clamped and cut, and the was handed off the field for evaluation. The placenta was delivered spontaneously with umbilical cord traction and fundal massage. The uterus was cleared of all clots and debris. The uterine incision was reapproximated in a running locking fashion with a 0 chromic suture. A 2nd layer of the same suture was used to imbricate in horizontal fashion. One additional figure of X suture of 0 chromic, and two figure of X sutures of 3-0 chromic were used where needed for hemostasis. The uterus was then exteriorized. Both fallopian tubes were identified to their fimbrial ends. Attention was 1st turned to the left fallopian tube which was elevated in its midsection with Houston clamps, then excised from cornual attachment to fimbrial end using the LigaSure device. Excellent hemostasis was visualized. Attention was then turned to the right fallopian tube, which was isolated, elevated, and excised in a similar fashion. The uterus was returned to the abdomen. The gutters were irrigated and suctioned. All instruments and retractors were removed. The anterior peritoneum was reapproximated in a running fashion with a 3-0 Vicryl suture. The subfascial tissues were carefully inspected and hemostasis assured. The fascia was reapproximated in a running fashion with a looped 0 Maxon suture. The subcutaneous tissues were copiously irrigated. Hemostasis was assured. Two ybplow-dk-bgsrs sutures of 0 chromic were placed across the closure for hemostasis. The skin was closed in a subcuticular fashion with 4-0 Vicryl. Surgical glue and dressing were applied. The patient tolerated the procedure well. Sponge, lap, needle, and instrument counts were reported as correct x2. The patient was taken to the recovery room, awake, and in stable condition. She did receive 2 grams of IV Ancef preoperatively. Complications: None. Pathology: none sent Surgery Debrief Performed: Yes Condition: stable Disposition: floor
[2023-10-08] MEDS: CEFAZOLIN 2 GM INJ IVP (07:35)
--- NOTE | 2023-10-08 07:59 | W.ANESCHARGE ---
Anesthesia Charges Start Date/Time Anesthesia Start Date: 10/08/23 Anesthesia Start Time: 07:24 Stop Date/Time Anesthesia Stop Date: 10/08/23 Anesthesia Stop Time: 09:25
[2023-10-08] MEDS: LACTATED RINGERS 1000 ML 1,000 ML 125 ML IV ×2 (08:06→11:37)
--- NOTE | 2023-10-08 09:29 | W.ANESCHARGE ---
Anesthesia Charges Start Date/Time Anesthesia Start Date: 10/08/23 Anesthesia Start Time: 07:24 Stop Date/Time Anesthesia Stop Date: 10/08/23 Anesthesia Stop Time: 09:25
--- NOTE | 2023-10-08 09:35 | W.PM.NB ---
Nerve Block Nerve Block Time Seen by Provider: 09:14 Date Seen: 10/08/23 Type of block requested by surgeon for post-operative analgesia: TAP Side: bilateral Time out performed: Yes Verification of patient name: Yes Verification of date of : Yes Site marking: site marked Name of person performing procedure: Jan Continuous monitoring Was continuous monitoring of O2 sat, B/P, negative developer, recorded every 15 minutes?: Yes Procedure Checklist: sterile prep, needles and gloves Ultrasound guided. Images saved: Yes Medications given in 5ml increments after negative aspiration: Marcaine %: 0.25 mL: 30 Needle gauge: 20 and Exparel mL: 10 Patient tolerated procedure well: Yes Additional comments: Needle noted between internal oblique and transversus abdominus. Local spread visualized Block Charges Block Charge (with Pro Fee): TAP Bilateral Use of Ultrasound Machine for Block: Yes- US Guidance/pain block
[2023-10-08] MEDS: KETOROLAC 30 MG/ML inj IVP ×2 (15:01→20:32)
[2023-10-08] MEDS: ONDANSETRON 2 MG/ML inj 4 MG IVP (17:14)
[2023-10-09] VITALS (12 sets, daily range): BP systolic 89–105; BP diastolic 55–66; PULSE 69–95; RESP 15–18; TEMP 36.3–36.9; O2SAT 95–98
[2023-10-09] MEDS: KETOROLAC 30 MG/ML inj IVP ×3 (03:16→16:29)
[2023-10-09 06:44] LABS: Hemoglobin* 11.4 gm/dL (12.0-16.0)
[2023-10-09] MEDS: DOCUSATE SODIUM 100 MG CAPSULE PO (09:43)
--- NOTE | 2023-10-09 09:57 | PM.OBPNVD1 ---
OB - PN:Subj Subjective Date Seen: 10/09/23 Patient comments OB post-: no complaints [place] status: Narrative: The patient feels well. Pain control has been excellent since surgery. Schneider catheter out since last night. going well. OB - PN: Obj Exam Physical Exam: Vital signs: Temp Pulse Resp BP Pulse Ox O2 Del Method 97.3 F L 95 16 95/64 96 Room Air 10/09/23 09:48 10/09/23 09:48 10/09/23 09:48 10/09/23 09:48 10/09/23 09:48 10/09/23 09:48 Constitutional: Constitutional: no acute distress Routine Neck Exam: Neck: Present normal inspection Routine Respiratory Exam: Respiratory: Present CTA bilaterally; Absent respiratory distress Routine Cardiovascular Exam: Cardiovascular: Present RRR; Absent murmur Routine Abdominal Exam: Abdominal: Present soft; Absent tenderness Fundus: Present firm Routine Extremities Exam: Extremities: Present normal inspection and pedal edema; Absent calf tenderness Routine Neurological Exam: Neurological: Present alert and oriented X3 Routine Psychiatric Exam: Psychiatric: Present normal affect Urinary Catheter Management: schneider: Cath placed during this visit: yes, but has since been removed by the nurse Reason for continuing: decision to DC catheter Insertion date: 10/08/23 Insertion time: 07:30 Removal date: 10/09/23 Removal time: 20:42 OB - PN: Obj Data Labs Labs: Laboratory Results - last 24 hr 10/08/23 10/09/23 05:55 06:38 Hgb 11.4 L Crossmatch (AHG) See Detail OB - PN: A/P Delivery Assessment and Plan (1) Status post repeat low transverse section: Status: Acute Plan day: 1 Plan: routine care
[2023-10-09] MEDS: IBUPROFEN 600 MG TABLET PO (23:01)
[2023-10-10] MEDS: ACETAMINOPHEN 500 MG TABLET 1000 MG PO (08:41)
[2023-10-10] MEDS: OXYCODONE 5 MG TABLET PO (08:42)
[2023-10-10] MEDS: DOCUSATE SODIUM 100 MG CAPSULE PO (08:42)
[2023-10-10 08:44] VITALS: BP 112/75; PULSE 82; RESP 16; TEMP 36.4; O2SAT 96
--- NOTE | 2023-10-10 10:20 | PM.OBDSVD1 ---
DS: Providers Provider Date Seen: 10/10/23 Date of admission: 10/08/23 05:19 Primary care physician: Not a Local Provider Admitting Clinician: Ivone Rowan MD Attending Physician on discharge: Ivone Rowan MD Date of Discharge: 10/10/23 DS: Diagnosis Discharge Diagnosis (1) Status post repeat low transverse section: Status: Acute Exam Const: Vital Signs, click to edit/add: Vital Signs - 24 hr 10/09/23 17:49 10/09/23 22:55 10/10/23 08:44 Temperature 97.9 F 98.2 F 97.6 F Pulse Rate [Pulse Oximeter] 72 86 82 Respiratory Rate 16 16 16 Blood Pressure [Le ft Arm] 104/65 105/66 112/75 Pulse Oximetry 98 95 96 Oxygen Delivery Me thod Room Air Room Air Documenting provider has reviewed patient's vital signs: yes Common normals: no apparent distress and oriented x3 General appearance: cooperative and comfortable HENMT: Common normals: normocephalic Head and scalp: normocephalic Chest: Nipple/areola: nipples/areola normal Resp: Common normals: normal respiratory effort Cardio: Common normals: regular rate and regular rhythm Rate: regular rate Rhythm: regular rhythm GI: Common normals: soft to palpation and non-tender Inspection: normal to inspection and incision Inspection of incision: healing well Palpation: soft Extremity: Common normals: normal to inspection and no pedal edema Neuro: Common normals: oriented x3 Psych: Common normals: affect normal OB - DS: Summary Hospital Course Hospital Course: The patient is a 33 year old G 3 now P 2014 at 39 4/7 weeks gestation that was admitted to the Center on 10/08/23 for repeat section with bilateral salpingectomies. She had an complicated delivery. She delivered a viable male infant. She is breast feeding. the patient has done well. Peripartum Data delivery method: Repeat Section Procedures: Procedures Operation Date: 10/08/23 07:15 Actual Procedure Side Surgeon p Repeat Section, Tubal Ligation Ivone Rowan MD Procedures: tubal ligation/salpingectomy complications: none [place] Gender: Male Infant Discharge Plan: Home Status at Discharge Functional status at discharge: independent ambulation Overall status at discharge: patient is back to baseline Time Spent with Patient Time attestation: Total time spent providing and/or coordinating discharge services: Time spent: Less than 30 minutes Discharge Plan Discharge Disposition: Home, Self-Care Date of Admission: 10/08/23 05:19 Attending Provider on Discharge: Ivone Rowan Primary Care Provider: Provider,Not a Local Condition: Stable Anticipated Discharge Date/Time: 10/10/23 10:23 Discharge Medications: New docusate sodium 100 mg Capsule 100 mg PO DAILY Qty: 30 0RF ibuprofen 600 mg Tablet 600 mg PO Q6H PRN (Reason: Pain) Qty: 30 0RF oxycodone 5 mg Tablet 5 - 10 mg PO Q6H PRN (Reason: Pain) Qty: 15 0RF Continued with DHA-Folic Acid 400-32.5 mcg-mg tablet,chewable 1 tab PO DAILY Probiotic Acidophilus 1.5 mg (250 million cell) capsule 1,000 mmu cells PO QDAY famotidine 10 mg tablet 10 mg PO QDAY PRN Discharge Orders: Discharge Order (Routine); Ordered 10/10/23 Ordered By: Ivone Rowan Additional Instructions: Discharge instructions were reviewed with the patient including signs and symptoms of infection and home going medications Lifting Restrictions: 20 pounds for 6 weeks Activity Level: Activity as Tolerated Discharge Diet: Regular Follow Up Appointments: Provider,Not a Local [Primary Care Provider] - Forms: [employer] Info Instructions
== END 2023-10-10 12:00 | disposition home or self-care (01) | DRG 785 ==
PROVIDERS: Admitting Provider Obstetrics & Gynecology; Visit Provider Obstetrics & Gynecology
PROC: 10D00Z1 Extraction of Products of Conception, Low, Open Approach (ICD-10-PCS; CPT 59514; principal; 2023-10-08 07:15)
DX: O34.211 Maternal care for low transverse scar from previous cesarean delivery (principal); O99.892 Other specified diseases and conditions complicating childbirth; N73.6 Female pelvic peritoneal adhesions (postinfective); Z3A.39 39 weeks gestation of pregnancy; Z37.0 Single live birth
CPT/HCPCS: 01961; 36415; 76942; 85018; 85025; 86850; 86900; 86901; 86922; 88302; A9270; C9290; J0665; J0690; J1100; J1885; J2274; J2371; J2405; J2590; J7120